=== PATIENT | male | born 1940 | race Caucasian/White ===

== ENCOUNTER 2017-05-22 12:10 | Day surgery (SDC) | payer MEDICARE, BC ==
[~2017-05-22] VITALS: Ht 182.9 cm; Wt 122.5 kg
[2017-05-22] MEDS ORDERED: LOSARTAN-HCTZ1 EACH PO (12:32)
[2017-05-22] MEDS ORDERED: CRESTOR5 MG PO (12:33)
--- NOTE | 2017-05-22 14:13 | NUR ---
05/22/17 1413 Violeta Proctor 1405 PT ARRIVED AWAKE AND TALKING. PT REPORTS PAIN IN ABD, 08/31. ABD ROUND
--- NOTE | 2017-05-23 08:50 | OR ---
[facility] [address], [place] [address] Signed DATE OF OPERATION: 05/22/2017 SURGEON: Geraldo Smith MD PREOPERATIVE DIAGNOSES: 1. History of hyperplastic polyp at 25 cm, 2010. 2. History of hepatic abscess, status post percutaneous drainage, 2011, known diverticular disease. POSTOPERATIVE DIAGNOSIS: Sigmoid and left-sided diverticulosis. No evidence of polyps. PROCEDURE: Total colonoscopy to cecum. ANESTHESIA: Intravenous sedation, fentanyl 100 mcg, Versed 5 mg. INDICATION: This 76-year-old white man is a patient of Dr. Trammell and here for surveillance colonoscopy. He has undergone colonoscopy in 2010, at which point he was found to have a hyperplastic polyp at 25 cm. Additionally, the patient was treated by fl for hepatic abscess noted in 2011. This required percutaneous drainage of the abscess and subsequent resolution. It is presumed he had a sigmoidal source of his abscess. He is admitted at this time to undergo colonoscopy for surveillance. He understands the risks of bleeding, infection, and perforation. FINDINGS: The prep was excellent. Complete colonoscopy was undertaken to the cecum without question. There were numerous diverticula, most large in size of the sigmoid and left colon. There were no polyps, signs of colitis, or other problem. DESCRIPTION OF PROCEDURE: The patient was brought to the endoscopy suite and placed in lateral decubitus position, given intravenous sedation to the point of slurred speech and nystagmus with full cardiopulmonary monitoring. Digital rectal examination was performed and found to be normal. An Olympus video colonoscope was passed in the rectum and manipulated throughout the Electronically Signed By: GERALDO SMITH MD 05/23/17 0850 PATIENT NAME: STANLEY CLEVELAND OPERATIVE REPORT DATE OF : 44 PHYSICIAN: GERALDO SMITH MD REPORT #: [id number] REPORT IS CONFIDENTIAL AND NOT TO BE RELEASED WITHOUT AUTHORIZATION [facility] [address], [place] [address] Signed colon. Numerous diverticula were seen in the sigmoid and left colon. The scope was manipulated through this area, ultimately to the cecum. The ileocecal valve and appendiceal orifice were normal. Photographs were taken. The scope was carefully withdrawn and examination throughout showed no sign of abnormality into the mid descending colon, where diverticular changes were once again seen. Further withdrawal of scope showed only diverticular changes of the sigmoid. Retroflexed view of the rectum was normal. There were no polyps. The patient was taken to the recovery room in good condition having suffered no complication. CONCLUDING DIAGNOSIS: Sigmoid and left-sided diverticulosis. No evidence of polyps. PLAN: Expectant management at age 76 would be reasonable. Otherwise, repeat colonoscopy in 10 years depending on clinical status. A high-fiber diet is recommended. He will return to the ongoing care of Dr. Trammell. If he should have symptoms that recur in any way, repeat evaluation would be well-supported. MD TAVO Weinberg/RENETTA /[id number] cc: Vitaly Trammell MD Electronically Signed By: GERALDO SMITH MD 05/23/17 0850 PATIENT NAME: STANLEY CLEVELAND OPERATIVE REPORT DATE OF : 44 PHYSICIAN: GERALDO SMITH MD REPORT #: [id number] REPORT IS CONFIDENTIAL AND NOT TO BE RELEASED WITHOUT AUTHORIZATION
== END 2017-05-22 14:56 | disposition home or self-care (01) ==
LOC: OPS 12:10 → DS 12:10 → OPS 13:00
PROVIDERS: Surgery
PROC: 0DJD8ZZ Inspection of Lower Intestinal Tract, Via Natural or Artificial Opening Endoscopic (ICD-10-PCS; principal; 2017-05-22 13:00)
DX: Z12.11 Encounter for screening for malignant neoplasm of colon (principal); K57.30 Diverticulosis of large intestine without perforation or abscess without bleeding; I10 Essential (primary) hypertension; E78.00 Pure hypercholesterolemia, unspecified; E66.01 Morbid (severe) obesity due to excess calories; K75.0 Abscess of liver; Z68.37 Body mass index [BMI] 37.0-37.9, adult; Z86.010 Personal history of colon polyps; Z87.19 Personal history of other diseases of the digestive system; Z90.49 Acquired absence of other specified parts of digestive tract; Z98.890 Other specified postprocedural states
CPT/HCPCS: G0105; 99153; G0500; J2250; J3010

== ENCOUNTER 2017-06-07 06:59 | Day surgery (SDC) | payer MEDICARE, BC ==
[~2017-06-07] VITALS: Ht 182.9 cm; Wt 129.3 kg
[~2017-06-07 06:59] MED LIST: CRESTOR5 MG PO; LOSARTAN-HCTZ1 EACH PO
== END 2017-06-07 08:34 | disposition home or self-care (01) ==
LOC: OPS 06:59 → DS 06:59 → OPS 08:34
PROVIDERS: Ophthalmology
PROC: 08RJ3JZ Replacement of Right Lens with Synthetic Substitute, Percutaneous Approach (ICD-10-PCS; principal; 2017-06-07 08:00)
DX: H25.813 Combined forms of age-related cataract, bilateral (principal); I10 Essential (primary) hypertension; E78.00 Pure hypercholesterolemia, unspecified; Z98.890 Other specified postprocedural states; Z79.899 Other long term (current) drug therapy
CPT/HCPCS: J2250

== ENCOUNTER 2017-06-21 06:52 | Day surgery (SDC) | payer MEDICARE, BC ==
[~2017-06-21] VITALS: Ht 182.9 cm; Wt 129.3 kg
== END 2017-06-21 08:33 | disposition home or self-care (01) ==
LOC: OPS 06:52 → DS 06:52 → OPS 08:00 → DS 08:00 → OPS 08:33
PROVIDERS: Ophthalmology
PROC: 08RK3JZ Replacement of Left Lens with Synthetic Substitute, Percutaneous Approach (ICD-10-PCS; principal; 2017-06-21 08:00)
DX: H25.812 Combined forms of age-related cataract, left eye (principal); I10 Essential (primary) hypertension; R12 Heartburn; Z79.899 Other long term (current) drug therapy; Z85.828 Personal history of other malignant neoplasm of skin; Z98.890 Other specified postprocedural states
CPT/HCPCS: 00140; J2250

== ENCOUNTER 2023-05-19 20:04 | Emergency (ER) | payer OTHER, MEDICARE, BC ==
[2023-05-19] MEDS ORDERED: ELIQUIS5 MG (20:12)
[2023-05-19 20:24] LABS: BASOPHILS 0.4 % (0-2); EOSINOPHILS 1.6 % (0-6); HEMATOCRIT 40.2 % (35.0-50.0); HEMOGLOBIN 13.6 g/dL (12.0-18.0); LYMPHOCYTES 12.6 % (24-44); MCH 31.7 (27-36); MCHC 33.7 g/dl (30-36); MONOCYTES 11.6 % (0-12); NEUTROPHILS 73.8 % (39-80); PLATELET COUNT 214 K/uL (140-440); RBC 4.28 M/ul (4.3-5.7); RDW 13.9 (10.5-15.0)
[2023-05-19 20:39] LABS: ALBUMIN 3.5 g/dL (3.4-5.0); ALBUMIN/GLOBULIN RATIO 1.17 (1.1-2.4); ANION GAP 17.7 (7-21); BILIRUBIN, TOTAL 1.7 ng/dL (0.2-1.0); BUN/CREATININE RATIO 10.11 (6.0-28.6); CALCIUM 8.4 mg/dL (8.5-10.1); CREATININE, SERUM 0.89 mg/dL (0.70-1.30); POTASSIUM 3.7 mmol/L (3.5-5.1); PROTEIN, TOTAL 6.5 g/dL (6.4-8.2)
[2023-05-19 23:13] LABS: BILIRUBIN, URINE NEGATIVE (negative); BLOOD/HGB, URINE NEGATIVE (Negative); KETONE, URINE NEGATIVE (Negative); LEUK ESTERASE, URINE NEGATIVE (negative); NITRITE, URINE NEGATIVE (negative)
[2023-05-19 23:45] VITALS: BP 122/66
--- NOTE | 2023-05-21 18:56 | EKG ---
[facility] [address] [facility] [place] [address] Signed Atrial fibrillation Intermittent left bundle branch block Nonspecific ST and T wave abnormality Confirmed by Jordan López M.D. ([id number]) on 05/21/2023 6:56:09 PM Electronically Signed By: JORDAN LÓPEZ 05/21/23 1856 PATIENT NAME: STANLEY CLEVELAND Electrocardiogram DATE OF : 44 PHYSICIAN: JORDAN LÓPEZ REPORT #: [id number] REPORT IS CONFIDENTIAL AND NOT TO BE RELEASED WITHOUT AUTHORIZATION
== END 2023-05-19 23:45 | disposition home or self-care (01) ==
LOC: ED 20:04
PROVIDERS: Internal Medicine
DX: S40.022A Contusion of left upper arm, initial encounter (principal); S00.03XA Contusion of scalp, initial encounter; W01.0XXA Fall on same level from slipping, tripping and stumbling without subsequent striking against object, initial encounter; F10.129 Alcohol abuse with intoxication, unspecified; I48.91 Unspecified atrial fibrillation; Z87.891 Personal history of nicotine dependence; Z79.01 Long term (current) use of anticoagulants; Z79.899 Other long term (current) drug therapy
CPT/HCPCS: 36415; 70450; 73060; 80053; 81003; 85025; 93005; 93010; 99284-25; G0480

== ENCOUNTER 2024-05-23 06:57 | Emergency (ER) | payer MEDICARE, BC ==
[~2024-05-23] VITALS: Ht 182.9 cm; Wt 122.5 kg
[~2024-05-23 06:57] MED LIST changes: +ELIQUIS5 MG
[2024-05-23] MEDS ORDERED: SOD PHOSPHATE/SOD BIPHOSPHATE 132 ML BTL PR ONE (07:30)
[2024-05-23 09:07] VITALS: BP 141/67
== END 2024-05-23 09:07 | disposition home or self-care (01) ==
LOC: ED 06:57
DX: K56.41 Fecal impaction (principal); I48.91 Unspecified atrial fibrillation; Z98.890 Other specified postprocedural states; Z87.891 Personal history of nicotine dependence; Z79.01 Long term (current) use of anticoagulants; Z79.899 Other long term (current) drug therapy
CPT/HCPCS: 99283